=== PATIENT | female | born 1985 | race Caucasian/White ===

== ENCOUNTER 2016-09-03 19:40 | Emergency (ER) | payer OTHER ==
[~2016-09-03] VITALS: Ht 157.5 cm; Wt 94.5 kg
[2016-09-03 19:44] VITALS: BP 112/76; PULSE 68; RESP 16; O2SAT 100
== END 2016-09-03 20:49 | disposition left against medical advice (07) ==
LOC: SED 19:40
DX: G43.909 Migraine, unspecified, not intractable, without status migrainosus (principal); Z53.21 Procedure and treatment not carried out due to patient leaving prior to being seen by health care provider